=== PATIENT | male | born 1990 | race Caucasian/White ===

== ENCOUNTER 2019-09-24 13:24 | Observation (INO) ==
[2019-09-24 14:34] LABS: Basophils # (auto) 0.01 K/uL (0-0.2); Basophils % (auto) 0.2 %; Eosinophils # (auto) 0.11 K/uL (0-0.5); Eosinophils % (auto) 1.8 %; Hematocrit (blood only) 41.4 % (42-52); Hemoglobin 15.4 g/dL (14.0-18.0); Immature Granulocytes # (auto) 0.01 K/uL (0.00-0.02); Immature Granulocytes % (auto) 0.2 %; Lymphocytes # (auto) 1.33 K/uL (1.2-3.4); Lymphocytes % (auto) 22.2 %; Mean Corpuscular Hemoglobin 31.2 pg (25-34); Mean Corpuscular Hgb Conc 37.2 g/dL (32-36); Mean Platelet Volume 9.7 fL (7.4-10.4); Monocytes # (auto) 0.27 K/uL (0.11-0.59); Monocytes % (auto) 4.5 %; Neutrophils # (auto) 4.26 K/uL (1.4-6.5); Neutrophils % (auto) 71.1 %; Platelet Count 251 K/uL (130-400); RDW Coefficient of Variation 12.1 % (11.5-14.5); RDW Standard Deviation 36.8 fL (36.4-46.3); Red Blood Count 4.93 M/uL (4.7-6.1); White Blood Count 5.99 K/uL (4.8-10.8)
[2019-09-24 14:57] LABS: Albumin Level 4.3 gm/dl (3.4-5.0); BUN Creatinine Ratio 13.1 (10-20); Calcium 9.3 mg/dl (8.5-10.1); Creatinine Clr Calc Pharmacy 131.2 ml/min; Est GFR (African American) 128.3; Est GFR (Non-African American) 110.7; Potassium 3.6 mmol/L (3.5-5.1)
[2019-09-24 15:00] LABS: Albumin Globulin Ratio 1.2 (0.9-2); Bilirubin,Total 0.6 mg/dl (0.2-1); Globulin 3.7 gm/dl (2.5-4.0)
[2019-09-24] MEDS ORDERED: LACTATED RINGER'S 1,000 ML IV ONE (16:18)
[2019-09-24] MEDS ORDERED: LACTATED RINGER'S 1,000 ML IV SCH (16:30)
[2019-09-24] MEDS ORDERED: IOVERSOL 100ml IV PRN (16:31)
--- NOTE | 2019-09-24 16:43 | CT Scan Report ---
ABDOMEN AND PELVIS CT WITH IV AND ORAL CONTRAST CT DOSE: 501.73 mGy.cm HISTORY: Acute upper abdominal pain with elevated lipase upper abdominal pain, elevated lipase TECHNIQUE: Multiaxial CT images of the abdomen and pelvis were performed following the IV administrat ion of 94 cc of Optiray 320 and oral contrast. A dose lowering technique was utilized adhering to e principles of ALARA. COMPARISON STUDY: None. FINDINGS: Lung bases are clear. No pneumatosis or pneumoperitoneum. Imaged inferior cardiac chambers are unrema rkable. Spleen is mildly enlarged, 13.5 cm. The pancreas is unremarkable. There is no appreciable int erstitial or peripancreatic edema or peripancreatic fluid collections. Homogeneous enhancement of the pancreas without Guilherme or pancreatic ductal dilation. Unremarkable adrenal glands. Contracted gallbl adder. Unremarkable liver with patency of the hepatic and portal veins. Unremarkable appearance of the kidneys. Mild urinary bladder distention. The prostate is upper limits of normal in size with central coarse calcifications. Aorta and IVC are unremarkable. There is no ad enopathy. No bowel obstruction or bowel wall thickening. No ascites or mesenteric inflammation. Mild fecal rete ntion. Minimal colonic diverticulosis without acute diverticulitis. The terminal ileum and visualized appendix appear normal. Soft tissues are within normal limits. Bones appear intact. Probable bone is land of the right ischial tuberosity. IMPRESSION: 1. No acute intra-abdominal or intrapelvic abnormality. 2. No bowel obstruction or bowel wall thickening. Normal appendix. 3. No CT evidence of acute pancreatitis. ACT 112: Negative or not required by law. The above report was generated using voice recognition software. It may contain grammatical, syntax o r spelling errors. Electronically signed by: Norberto Joseph M.D. 09/24/2019 4:42 PM
--- NOTE | 2019-09-24 17:48 | History & Physical Report ---
Date of Service September 24, 2019 Assessment & Plan (1) Epigastric abdominal pain: -Admit to med surg for observation -This is likely gastritis vs gastric ulcer. Patient admits to consuming diet soda daily as well as red bull occasionally. Has recently started using famotidine with improvement in sx. Continue famotidine for now. Add carafate. Pt with high stress level in college could promote gastric ulceration. Low etoh consumption. -GI consulted, question if needs for possible endoscopy to rule out gastric ulcer. -Checking US of gallbladder to rule out cholecystitis -Lipase is elevated around 1000, patient denies any recent use of alcohol consumption, reports only uses alcohol 4 times a year. Check with a.m. labs -N.p.o. -Continue LR at 125 x 12 hours -Check helibacter pylori, guiac all stools -Tylenol for pain, patient reports pain is very mild at this point in time, Zofran PRN nausea (2) DVT prophylaxis: -Teds, ambulatory CODE STATUS full code Disposition: Patient from home, likely discharge within 24 hours History of Present Illness Primary Care Provider: NO PCP This is a [employer] student, 29 yo male with limited PMHx who presents with epigastric abdominal pain. Patient reports abdominal pain has been ongoing for approximately 1 month at this time, is worse postprandially, worse with carbonated drinks. Patient has been using OTC Pepcid daily x1 week which improved his symptoms, but did not eliminate them. He had also previously tried omeprazole for a few days. He denies any recent alcohol consumption, and states that he drinks ~4 times per year. He admits to drinking diet Pepsi every day, and energy drinks routinely. Prior to 1 month ago he was drinking 1-2 red bull per day. He denies any nausea, vomiting, changes in bowels including hematochezia, bright red blood per rectum, diarrhea or constipation. He reports his diet is fairly well-rounded including mostly proteins, fruits, vegetables and avoids all high-fat foods. He reports his father may have irritable bowel syndrome, however no formal diagnosis has been given. Pt reports that he stopped exercising about 1 year ago and has gained approximat stan 15 pounds due to being stressed out with college studies. Heused to smoke cigarettes, then switched to vaping, however vapes occasionally at this point, 1 time per week at max. Allergies Allergy/AdvReac Type Severity Reaction Status Date / Time No Known Allergies Allergy Unverified 09/24/19 14:17 Home Medications Home Medications Medication Instructions Recorded Confirmed Type famotidine [Pepcid] 20 mg PO BID 09/24/19 09/24/19 History Past Med/Surg History Medical History (Updated 09/24/19 @ 17:48 by Laura Figueroa PA-C) Psoriasis Family History (Updated 09/24/19 @ 17:23 by Bud Lima) Other No significant family history Social History (Updated 09/24/19 @ 17:22 by Bud Lima) Preferred Language: Marshallese Communication Ability: Effective Airline Dispatcher Required: No Beliefs That Will Affect Care: None Current Living Situation: Family Current Living Situation Comment: brother in a [employer] apartment current occupational status: student Other Information That Helps Us Care for You: No Feels Safe at Home: Yes Safety Concerns: Feels Safe At This Time Smoking Status: Former smoker Tobacco Type: cigarettes and e-cigarettes ; Cigarettes Per Day: 10 ; Smoking End Date: 2018 ; Hx Alcohol Use: Yes Alcohol type: beer Alcohol Intake Frequency: Rarely Hx Substance Use: No Review of Systems Review of Systems: Constitutional: No fever, sweats or chills Eyes: No diplopia, no worsening or blurred vision ENT: normal hearing, no trouble swallowing Respiratory: No cough, sputum, dyspnea at rest or on exertion Cardiovascular: No chest pain, tightness or palpitations Abdomen: As per HPI. Musculoskeletal: No joint pain, calf pain, swelling Neurologic: No weakness, numbness/tingling, or balance problems Psychiatric: No anxiety or depression Skin: No rash or itch Physical Exam Physical Exam: General: awake, alert, no apparent distress Head: Normocephalic, atraumatic ENT: PERRL, EOMI, no pharyngeal exudate, mucous membranes moist Chest: Clear to auscultation, on room air, no adventitious breath sounds Cardiac: Regular rate and rhythm, no murmur, no JVD, normal peripheral pulses, good capillary refill Abdominal: NABS x 4 quadrants, soft, nondistended, nontender to palpation, no rebound, guarding or tenderness Extremities: Normal inspection, no peripheral edema or erythema, calfs nontender to palpation Psych: Normal mood and affect Neuro: AAO x 3, strength intact bilaterally and rated 5/5, no motor deficits, speech is clear, no peripheral sensory deficits Results & Data Vital Signs (Past 12 Hours) Vital Signs Temp Pulse Pulse Resp BP BP Pulse Ox 09/24/19 17:00 92 H 18 138/82 98 09/24/19 13:29 37.1 C 107 H 20 159/93 H 98 Diagnostic Findings ABDOMEN AND PELVIS CT WITH IV AND ORAL CONTRAST CT DOSE: 501.73 mGy.cm HISTORY: Acute upper abdominal pain with elevated lipase upper abdominal pain, elevated lipase TECHNIQUE: Multiaxial CT images of the abdomen and pelvis were performed following the IV administration of 94 cc of Optiray 320 and oral contrast. A dose lowering technique was utilized adhering to the principles of ALARA. COMPARISON STUDY: None. FINDINGS: Lung bases are clear. No pneumatosis or pneumoperitoneum. Imaged inferior cardiac chambers are unremarkable. Spleen is mildly enlarged, 13.5 cm. The pancreas is unremarkable. There is no appreciable interstitial or peripancreatic edema or peripancreatic fluid collections. Homogeneous enhancement of the pancreas without Guilherme or pancreatic ductal dilation. Unremarkable adrenal glands. Contracted gallbladder. Unremarkable liver with patency of the hepatic and portal veins. Unremarkable appearance of the kidneys. Mild urinary bladder distention. The prostate is upper limits of normal in size with central coarse calcifications. Aorta and IVC are unremarkable. There is no adenopathy. No bowel obstruction or bowel wall thickening. No ascites or mesenteric inflammation. Mild fecal retention. Minimal colonic diverticulosis without acute diverticulitis. The terminal ileum and visualized appendix appear normal. Soft tissues are within normal limits. Bones appear intact. Probable bone island of the right ischial tuberosity. IMPRESSION: 1. No acute intra-abdominal or intrapelvic abnormality. 2. No bowel obstruction or bowel wall thickening. Normal appendix. 3. No CT evidence of acute pancreatitis. ACT 112: Negative or not required by law. The above report was generated using voice recognition software. It may contain grammatical, syntax or spelling errors. Electronically signed by: Norberto Joseph M.D. 09/24/2019 4:42 PM Code Status & VTE Plan Code Status FULL CODE Supervising Physician Co-Signing Physician Notes I have seen and examined patient with Janeth Figueroa PA-C and agree with the assessment and plan. PG Care Time/CCT Total # of Minutes Spent Total Time Spent with Patient: Total time spent is greater than 50% in coordination of care (as documented) at patient's floor/unit and/or counseling patient: Coding Level of Care Code 45008 OBS Care - Level 3 Diagnoses Epigastric abdominal pain R10.13 DVT prophylaxis Z29.9
[2019-09-24] MEDS: LACTATED RINGER'S 1,000 ML IV SCH (19:15)
[2019-09-24] MEDS ORDERED: ONDANSETRON INJ 2 MG/ML 2 ML VIAL IV PRN (19:18)
[2019-09-24] MEDS ORDERED: ACETAMINOPHEN 325 MG TAB PO PRN (19:18)
--- NOTE | 2019-09-24 20:30 | Emergency Department Note ---
Entered by Bud Lima acting as a scribe for ED Provider Note CHIEF COMPLAINT: abdominal pain HISTORY OF PRESENT ILLNESS: The patient is a 29 year old M who presents to the Emergency Room with complaints of waxing and waning abdominal pain that started 1 week ago. The patient states that for the past week, he has been experiencing abdominal pain and bloating. He notes that at worst, his abdominal pain is 6 out of 10. He adds that right now, his pain is at 3 out of 10. He states that he has been taking Pepcid and omeprazole for his abdominal pain. He notes that the Pepcid relieves his pain, but causes him to experience worsened abdominal bloating. He adds that eating worsens his pain. He notes that his pain radiates to his back. He adds that he has noticed that his stools are light in color. He states that he is also currently experiencing shortness of breath, tiredness, congestion, upper back pain, and a rash on his palms. He notes that his shortness of breath is present when he tries to take a deep breath. He adds that he has a history of psoriasis. He states that he went to see his PCP, today, due to his symptoms. He adds that his PCP referred him to the ED due to an elevated lipase level of 857. He denies being around anybody sick and being on any recent travel. He states that he was born in [place]. He adds that he has been living in the since 2006. He notes that he is currently studying math, at [employer], as an undergraduate student. He states that he rarely drinks alcohol. He denies drinking any alcohol in the past couple of weeks. Pt denies LOC, headache, fevers, chills, diaphoresis, visual changes, neck pain, chest pain, nausea, vomiting, melena, hematochezia, urinary symptoms, numbness, weakness, lymphadenopathy, or other complaints. REVIEW OF SYSTEMS: See HPI for pertinent positives and negatives. A total of ten systems were reviewed and were otherwise negative. PMHx/PSHx: psoriasis SOCIAL HISTORY: Patient lives at home. Patient is a current college student. Patient rarely drinks alcohol. PHYSICAL EXAM: GENERAL: Awake, alert, well-appearing, in no distress HENT: Normocephalic, atraumatic. Oropharynx unremarkable. EYES: PERRL. Normal conjunctiva. Sclera non-icteric. NECK: Inspection normal. Non-tender. Supple. No nuchal rigidity. FROM. No masses. RESPIRATORY: Clear to auscultation. No wheezes. No rales. Normal respiratory effort. CARDIAC: Normal rate. Normal rhythm. No murmurs. No rubs. Extremities warm and well perfused. Pulses equal. No JVD. GI: Soft, non-distended. Minimal epigastric discomfort. No rebound or guarding. No masses. RECTAL: Deferred. MUSCULOSKELETAL: Atraumatic. Chest examination reveals no tenderness. The back is symmetrical on inspection without obvious abnormality. There is no CVA tenderness to palpation. No joint edema. LOWER EXTREMITIES: Calves are equal size bilaterally and non-tender. No edema. No discoloration. NEURO: Normal sensorium. No sensory or motor deficits noted. SKIN: No rash or jaundice noted. EMERGENCY DEPARTMENT COURSE: 1419: The patient was evaluated in room B2, and a complete history and physical examination were performed. 1713: I reviewed the patient's case with Dr. Adkins, [facility] [place] Hospitalist. She will evaluate the patient for further management. 1722: I updated the patient on his test results and plan for admission. MEDICAL DECISION MAKING: B2 Prior records/ancillary studies reviewed. Triage Nursing notes reviewed and agree them. The patient's history was concerning for abdominal pain. Differential diagnosis: Etiologies such as , pancreatitis, appendicitis, diverticulitis, PUD, biliary pathology, UTIobstruction, mesenteric ischemia, aortic pathology, infections, inflammatory bowel disease, renal colic, as well as others were entertained. Physical examination findings: As above. ER treatment provided: Patient declined analgesia Lactated Ringer's bolus and drip On reassessment the patient felt better. Diagnostics interpreted by me: The labs revealed an unremarkable CBC and chemistry panel. The patient's lipase was significantly elevated at 1112. Imaging studies: CT imaging of the abdomen pelvis was performed and did not reveal any acute findings. No CT evidence of pancreatitis. The patient has pancreatitis of unknown etiology. Ultrasound imaging was ordered however the patient's gallbladder was contracted and radiology recommended waiting 6 hours before scanning. Consultation: A consultation was placed with the [facility] hospitalist. The case was discussed and diagnostics were reviewed. The patient was evaluated in the ER for further treatment. IMPRESSION: pancreatitis, epigastric abdominal pain PLAN: Admitted as inpatient. The scribe's documentation has been prepared under my direction and personally reviewed by me in its entirety. I confirm that the note above accurately reflects all work, treatment, procedures, and medical decision making performed by me. Impression & Plan Pancreatitis, Epigastric abdominal pain Past Med/Surg History Medical History (Updated 09/24/19 @ 17:48 by Laura Figueroa PA-C) Psoriasis Family History (Updated 09/24/19 @ 17:23 by Bud Lima) Other No significant family history Social History (Updated 09/24/19 @ 17:22 by Bud Lima) Preferred Language: Senegalese Communication Ability: Effective Polishing Machine Tender Required: No Beliefs That Will Affect Care: None Current Living Situation: Family Current Living Situation Comment: brother in a [employer] apartment current occupational status: student Other Information That Helps Us Care for You: No Feels Safe at Home: Yes Safety Concerns: Feels Safe At This Time Smoking Status: Former smoker Tobacco Type: cigarettes and e-cigarettes ; Cigarettes Per Day: 10 ; Smoking End Date: 2018 ; Hx Alcohol Use: Yes Alcohol type: beer Alcohol Intake Frequency: Rarely Hx Substance Use: No Results & Data Vital Signs Vital Signs - 24 hr 09/24/19 13:29 09/24/19 17:00 Temperature 37.1 C Temperature Source Oral Pulse Rate 107 H Pulse Rate [Left] 92 H Pulse Rhythm [Left] Regular Pulse Strength [Left] Normal Respiratory Rate 20 18 Respiratory Effort / Characteristics Non-Labored Spontaneous Non-Labored Spontaneous Respiratory Depth Normal Normal Blood Pressure 159/93 H Blood Pressure [Left Arm] 138/82 Blood Pressure Mean 115 Blood Pressure Mean [Left Arm] 100 Blood Pressure Position Sitting Blood Pressure Position [Left Arm] Lying Pulse Oximetry 98 98 Oxygen Delivery Method Room Air Room Air Sepsis Action Taken by Nursing No Action Required Home Medications Current Medication List: was personally reviewed by me Laboratory Data Attestation: I reviewed the patient's lab results. Result diagrams: 09/24/19 14:21 09/24/19 14:21 Lab Results 09/24/19 09/24/19 Range/Units 14:21 14:21 WBC 5.99 (4.8-10.8) K/uL RBC 4.93 (4.7-6.1) M/uL Hgb 15.4 (14.0-18.0) g/dL Hct 41.4 L (42-52) % MCV 84.0 (80-100) fL MCH 31.2 (25-34) pg MCHC 37.2 H (32-36) g/dL RDW Std Deviation 36.8 (36.4-46.3) fL RDW Coeff of Danni 12.1 (11.5-14.5) % Plt Count 251 (130-400) K/uL MPV 9.7 (7.4-10.4) fL Immature Gran % (Auto) 0.2 % Neut % (Auto) 71.1 % Lymph % (Auto) 22.2 % Stewart % (Auto) 4.5 % Eos % (Auto) 1.8 % Baso % (Auto) 0.2 % Immature Gran # (Auto) 0.01 (0.00-0.02) K/uL Neut # (Auto) 4.26 (1.4-6.5) K/uL Lymph # (Auto) 1.33 (1.2-3.4) K/uL Stewart # (Auto) 0.27 (0.11-0.59) K/uL Eos # (Auto) 0.11 (0-0.5) K/uL Baso # (Auto) 0.01 (0-0.2) K/uL Sodium 138 (136-145) mmol/L Potassium 3.6 (3.5-5.1) mmol/L Chloride 105 (98-107) mmol/L Carbon Dioxide 29 (21-32) mmol/L Anion Gap 4.0 (3-11) BUN 12 (7-18) mg/dl Creatinine 0.94 (0.6-1.4) mg/dl Est Cr Clr Drug Dosing 131.2 ml/min Est GFR ( Amer) 128.3 Est GFR (Non-Af Amer) 110.7 BUN/Creatinine Ratio 13.1 (10-20) Glucose 117 H (70-99) mg/dl Calcium 9.3 (8.5-10.1) mg/dl Total Bilirubin 0.6 (0.2-1) mg/dl AST 18 (15-37) U/L ALT 31 (12-78) U/L Alkaline Phosphatase 61 (45-117) U/L Total Protein 8.0 (6.4-8.2) gm/dl Albumin 4.3 (3.4-5.0) gm/dl Globulin 3.7 (2.5-4.0) gm/dl Albumin/Globulin Ratio 1.2 (0.9-2) Lipase 1112 H (73-393) U/L Administered Medications Ioversol (Optiray 320 100ml) 94 ml IV ONCE PRN PRN Reason: Interaction Checking Stop: 09/28/19 16:30 Last Admin: 09/24/19 16:32 Dose: 94 ml Documented by: [id number] Discontinued Medications Lactated Ringer's (Lr) 1,000 mls @ 999 mls/hr IV .Q1H1M ONE Stop: 09/24/19 17:18 Last Infusion: 09/24/19 18:55 Dose: 0 mls/hr Documented by: [id number] Admin: 09/24/19 17:39 Dose: 999 mls/hr Documented by: [id number] Lactated Ringer's (Lr) 1,000 mls @ 200 mls/hr IV .Q5H BLUE Stop: 09/24/19 20:00 Last Admin: 09/24/19 18:33 Dose: 200 mls/hr Documented by: [id number] Imaging Data Radiologist's Impression: Radiology results as stated below per my review and the radiologist's interpretation: ABDOMEN AND PELVIS CT WITH IV AND ORAL CONTRAST CT DOSE: 501.73 mGy.cm HISTORY: Acute upper abdominal pain with elevated lipase upper abdominal pain, elevated lipase TECHNIQUE: Multiaxial CT images of the abdomen and pelvis were performed following the IV administration of 94 cc of Optiray 320 and oral contrast. A dose lowering technique was utilized adhering to the principles of ALARA. COMPARISON STUDY: None. FINDINGS: Lung bases are clear. No pneumatosis or pneumoperitoneum. Imaged inferior cardiac chambers are unremarkable. Spleen is mildly enlarged, 13.5 cm. The pancreas is unremarkable. There is no appreciable interstitial or peripancreatic edema or peripancreatic fluid collections. Homogeneous enhancement of the pancreas without Guilherme or pancreatic ductal dilation. Unremarkable adrenal glan ds. Contracted gallbladder. Unremarkable liver with patency of the hepatic and portal veins. Unremarkable appearance of the kidneys. Mild urinary bladder distention. The prostate is upper limits of normal in size with central coarse calcifications. Aorta and IVC are unremarkable. There is no adenopathy. No bowel obstruction or bowel wall thickening. No ascites or mesenteric inflammation. Mild fecal retention. Minimal colonic diverticulosis without acute diverticulitis. The terminal ileum and visualized appendix appear normal. Soft tissues are within normal limits. Bones appear intact. Probable bone island of the right ischial tuberosity. IMPRESSION: 1. No acute intra-abdominal or intrapelvic abnormality. 2. No bowel obstruction or bowel wall thickening. Normal appendix. 3. No CT evidence of acute pancreatitis. ACT 112: Negative or not required by law. The above report was generated using voice recognition software. It may contain grammatical, syntax or spelling errors. Electronically signed by: Norberto Joseph M.D. 09/24/2019 4:42 PM Blood Pressure Blood Pressure Findings: Elevated blood pressure Blood Pressure Disposition: further management by hospitalist Discharge Plan Visit Data *Final* Discharge Date/Time: 09/24/19 19:07 Chief Complaint: Abdominal Pain Stated Complaint: ABD PAIN, LAB RESULTS REF BY DR TORRES Provider: David La Discharge Problem: Pancreatitis, Epigastric abdominal pain Patient Disposition: Admitted As Inpatient Discharge Instructions Interventions: ED Discharge Assessment Last Done: 09/24/19 19:07 Discharge Problem: Pancreatitis Qualifiers: Chronicity: acute Pancreatitis type: unspecified pancreatitis type Acute pancreatitis complication: unspecified Qualified Code(s): K85.90 - Acute pancreatitis without necrosis or infection, unspecified The scribe's documentation has been prepared under my direction and personally reviewed by me in its entirety. I confirm that the note above accurately reflects all work, treatment, procedures, and medical decision making performed by me.
--- NOTE | 2019-09-24 20:47 | Ultrasound Report ---
US gallbladder CLINICAL HISTORY: 29 years-old Male presenting with pancreatitis. TECHNIQUE: Real-time grayscale and limited color Doppler ultrasound imaging of the abdomen limited to the right upper quadrant was performed. COMPARISON: CT performed earlier today. FINDINGS: Pancreas: Visualized portions of the pancreatic head and body normal. Liver: Normal echogenicity and echotexture. The liver measures 15.2 cm in maximal sagittal dimension. No sonographic evidence of hepatic mass. Main portal vein patent with normal directional flow. Biliary: No intrahepatic biliary ductal dilatation. Common bile duct measures up to 2 mm in diameter. Gallbladder: No evidence of gallstones, gallbladder wall thickening, gallbladder distention, or peric holecystic fluid or inflammatory change. Sonographic Romero's sign negative. Right kidney: Normal in appearance without evidence of hydronephrosis. Ascites: None. Other: None. IMPRESSION: No cholelithiasis or biliary ductal dilatation. ACT 112: Negative or not required by law. Electronically signed by: Jose Perkins M.D. 09/24/2019 8:46 PM
[2019-09-24] MEDS: FAMOTIDINE 20 MG TAB PO SCH (21:55)
[2019-09-24] MEDS: SUCRALFATE 1 GM/10 ML UDC PO SCH (21:55)
[2019-09-25] MEDS: LACTATED RINGER'S 1,000 ML IV SCH ×2 (03:08→15:00)
[2019-09-25 03:35] LABS: Appearance Urine Clear (Clear); Bilirubin Urine Negative (Negative); Blood Urine Negative (Negative); Color Urine Yellow; Glucose Urine UA Negative (Negative); Ketones Urine Negative (Negative); Leukocyte Esterase Urine Negative (Negative); Nitrite Urine Negative (Negative); Protein Urine Negative (Negative); Specific Gravity Urine 1.042 (1.000-1.030); Urobilinogen Urine Negative (Negative); pH Urine 6.5 (4.5-7.5)
[2019-09-25 05:59] LABS: Albumin Globulin Ratio 1.3 (0.9-2); Albumin Level 3.5 gm/dl (3.4-5.0); Bilirubin,Total 0.6 mg/dl (0.2-1); Calcium 8.6 mg/dl (8.5-10.1); Creatinine Clr Calc Pharmacy 137.9 ml/min; Est GFR (African American) 135.8; Est GFR (Non-African American) 117.2; Globulin 2.8 gm/dl (2.5-4.0); Potassium 4.2 mmol/L (3.5-5.1); Total Protein 6.3 gm/dl (6.4-8.2)
[2019-09-25] MEDS: SUCRALFATE 1 GM/10 ML UDC PO SCH ×3 (08:33→16:43)
[2019-09-25] MEDS: FAMOTIDINE 20 MG TAB PO SCH (08:33)
--- NOTE | 2019-09-25 10:12 | Gastrointestinal Consultation ---
Date of Consultation September 25, 2019 Assessment & Plan (1) Epigastric abdominal pain: (2) Elevated lipase: Pt is a 29 y/o male seen for elevated lipase noted on admission yesterday over 1000, though normalized this AM (75). Abdominal imaging w CT and u/s w/o signs of pancreatitis or liver abnormalities, nor gallstones, CBD dilation. LFTs normal. He does have epigastric discomfort & acid reflux/heartburn symptoms, worse w ingestion of Red Bull & sodas. Unsure cause of lipase elevation but less likely acute pancreatitis. Suspect likely has gastritis, or PUD. - Check lipid profile to r/o hypertriglyceridemia - CL diet, advance to low fat as tolerated - Advised to avoid sodas - No contraindication for DC home today. Recommend he at least should be discharged with high dose PPI PO BID dosing and we will schedule f/u outpt EGD/EUS evaluation Supervising Physician Co-Signing Physician Notes I performed a history and physical examination of the patient today, including specifically on physical exam - soft abdomen. I have discussed the patient's management with the advanced practitioner. Please refer to the nurse practitioner's note for the documented findings and plan of care. 29 yrs old admitted with abdominal pain, has minimal elevation in Lipase but normal CT scan, doubt true pancreatitis, pain resolved already. No gallstones or alcohol use. He drinks Red bull daily. Recommend: MRCP today to check ductal anatomy. EUS as OP. Stop Red bull. Recall GI if needed. History of Present Illness Reason for Consultation: Epigastric pain Requesting Physician: Dr. Oneal Dennis Attending Physician: Dr. Jonathon Patel History of Present Illness Pt is a 29 y/o [employer] student who was referred to ED yesterday by Dr. Us from [facility] for elevated lipase level. Pt had been c/o epigastric discomfort for over a month. Feels like he's having heartburn, acid reflux and been taking TUMs on prn basis. He drinks Red Bull and sodas regularly. These consumption makes epigastric discomfort worse. He saw Dr. sU yesterday and labs obtained showed lipase over 800 ([employer] labs) thus referred to ED for further eval. Repeat labs in ED showed normal CBC, renal/liver functions but lipase was over 1000. Interestingly lipase normal at [address] ab[address]/pelvis and gallbladder u/s w/o signs of acute pancreatitis, gallstones or sludge nor CBD dilation. He was kept NPO and given LR IVF. This AM felt good - no increased epigastric discomfort, stating never really had any pain. He denies regular uses of NSAIDs. Quit tobacco use, and started Jolynn vape up. Uses marijuana products last used 2 weeks ago. ETOH about 3x a year. time per week at max. Allergies Allergy/AdvReac Type Severity Reaction Status Date / Time No Known Allergies Allergy Unverified 09/24/19 14:17 Home Medications Home Medications Medication Instructions Recorded Confirmed Type famotidine [Pepcid] 20 mg PO BID 09/24/19 09/24/19 History pantoprazole [Protonix] 40 mg PO BID 30 Days #60 tab 09/25/19 Rx sucralfate [Carafate] 1 gm PO ACHS 7 Days #28 tab 09/25/19 Rx Patient History Medical History (Updated 09/25/19 @ 10:13 by Lily Roblero) Psoriasis Family History (Updated 09/24/19 @ 17:23 by Bud Lima) Other No significant family history Social History (Updated 09/24/19 @ 17:22 by Bud Lima) Preferred Language: Japanese Communication Ability: Effective Spreader Operator Automatic Required: No Beliefs That Will Affect Care: None Current Living Situation: Family Current Living Situation Comment: brother in a [employer] apartment current occupational status: student Other Information That Helps Us Care for You: No Feels Safe at Home: Yes Safety Concerns: Feels Safe At This Time Smoking Status: Former smoker Tobacco Type: cigarettes and e-cigarettes ; Cigarettes Per Day: 10 ; Smoking End Date: 2018 ; Hx Alcohol Use: Yes Alcohol type: beer Alcohol Intake Frequency: Rarely Hx Substance Use: No Review of Systems Review of Systems: All systems reviewed & are unremarkable except as noted in HPI & below Physical Exam Constitutional: WD/WN, vitals as above well groomed, cooperative and comfortable Eyes: PERRL, conjunctivae normal, anicteric sclerae ENMT: external ear and nose normal, oropharynx normal Respiratory: normal respiratory effort, lungs clear to auscultation Cardiovascular: RRR, no murmur, no edema Gastrointestinal (Abdomen): Inspection/Auscultation: normal bowel sounds Percussion/Palpation: + abdomen tender (mild epigastric tenderness) and abdomen soft; no guarding Skin: no rashes, warm and dry no jaundice Neurologic: Motor/Sensory: no asterixis Psychiatric: A+Ox3, euthymic affect Lymphatic: no lymphedema Results & Data ([facility]) Vital Signs (Past 12 Hours) Vital Signs Temp Pulse Resp BP Pulse Ox 09/25/19 07:17 36.5 C 19 106/66 97 09/24/19 23:15 36.3 C L 59 L 16 107/63 97
[2019-09-25 11:09] LABS: Chol HDL Ratio 3; Cholesterol 149 mg/dl (0-200); HDL Cholesterol 47 mg/dl; LDL Cholesterol Calculated 92 mg/dl; Triglycerides 52 mg/dl (0-150); VLDL Cholesterol 10 mg/dl
--- NOTE | 2019-09-25 15:07 | Discharge Summary ---
Date of Service September 25, 2019 Admission HPI Per Admitting Provider This is a [employer] student, 29 yo male with limited PMHx who presents with epigastric abdominal pain. Patient reports abdominal pain has been ongoing for approximately 1 month at this time, is worse postprandially, worse with carbonated drinks. Patient has been using OTC Pepcid daily x1 week which improved his symptoms, but did not eliminate them. He had also previously tried omeprazole for a few days. He denies any recent alcohol consumption, and states that he drinks ~4 times per year. He admits to drinking diet Pepsi every day, and energy drinks routinely. Prior to 1 month ago he was drinking 1-2 red bull per day. He denies any nausea, vomiting, changes in bowels including hematochezia, bright red blood per rectum, diarrhea or constipation. He reports his diet is fairly well-rounded including mostly proteins, fruits, vegetables and avoids all high-fat foods. He reports his father may have irritable bowel syndrome, however no formal diagnosis has been given. Pt reports that he stopped exercising about 1 year ago and has gained approximately 15 pounds due to being stressed out with college studies. Heused to smoke cigarettes, then switched to vaping, however vapes occasionally at this point, 1 time per week at max. Admission Exam Per Admitting Provider General: awake, alert, no apparent distress Head: Normocephalic, atraumatic ENT: PERRL, EOMI, no pharyngeal exudate, mucous membranes moist Chest: Clear to auscultation, on room air, no adventitious breath sounds Cardiac: Regular rate and rhythm, no murmur, no JVD, normal peripheral pulses, good capillary refill Abdominal: NABS x 4 quadrants, soft, nondistended, nontender to palpation, no rebound, guarding or tenderness Extremities: Normal inspection, no peripheral edema or erythema, calfs nontender to palpation Psych: Normal mood and affect Neuro: AAO x 3, strength intact bilaterally and rated 5/5, no motor deficits, speech is clear, no peripheral sensory deficits Principal Diagnosis Epigastric Pain, Pancreatitis Discharge Exam General: Resting comfortably HEENT: NC/AT; PERRLA with EOMI; [place] conjunctiva, MMM. No erythema of posterior pharynx Neck: Supple and nontender Cardiac: RRR Lungs: CTA bilaterally Abdomen: Bowel normoactive X 4; Nontender to palpation Extremities: Warm. No edema present Neuro: No focal weakness Skin: No rash Discharge Data Allergies Allergy/AdvReac Type Severity Reaction Status Date / Time No Known Allergies Allergy Unverified 09/24/19 14:17 Consultations 09/24/19 17:14 ED Decision to Admit Stat 09/24/19 19:18 Consult Gastroenterology Routine Ordered Studies 09/24/19 14:21 CT abd pelvis oral and IV con Stat 09/24/19 17:14 US gallbladder Stat 09/25/19 14:11 MR MRCP Routine Hospital Course (1) Epigastric abdominal pain: Likely related to pancreatitis vs. gastritis vs. PUD. Drinks soda daily along with redbull. Recently started using Famotidine with some improvement. Continued as inpatient. Added Carafate x 7 days and PPI [address] A/P was negative; RUQ US neg for cholelithiasis or ductal dilatation. GI consulted, MRCP was negative prior to discharge. Will need outpatient EUS/EGD in 4-6 weeks. PPI, H2RA and Carafate at home. H. pylori is pending. F/u with [facility] and GI as outpatient for further evaluation. (2) Pancreatitis: Lipase level >1,000 on admission, improved to 75. MRCP negative. Outpatient EUS will be scheduled. Lipid panel was WNL. Low fat diet at home; avoid ETOH consumption. (3) DVT prophylaxis: Teds, ambulatory. Discharged to home on 09/25/19. Total Time Total Time Spent Total Time Spent (In Minutes): >30 minutes Total Time Includes: Examination of the Patient, Discharge Planning, Medication Reconciliation, Communication With Other Providers and Other Discharge Plan Discharge Items Patient Disposition: Home - Self-Care Reason For Visit: EPIGASTRIC PAIN Discharge Diagnosis: Epigastric Pain, Gastritis Condition on Discharge: Good Goals: You have been hospitalized for an acute medical problem. During your stay at [facility], we have made an effort to correct the problem that brought you to the hospital while keeping you as comfortable as possible. Medications were used to bring your condition under control and your discharge instructions will include directions for any medications you should take after leaving the hospital. Please make sure you see your Primary Care Provider as part of your follow up plan. Activity: As commented below Exercise/Sports: Gradually increase as tolerated Non-emergency contact: Primary Care Provider and Social Media Senior Associate Call non-emergency contact if: you have any medication questions, your symptoms worsen and you have a fever Follow-up/Referrals: Sammy Lynn MD [Physician] - 10/07/19 9:50 am (Please follow up with gastro to discuss EGD/EUS in 4-6 weeks. ) [facility] [Non-Staff] - (Please follow up with [facility] in 7-10 days. ) PCP,NO [Primary Care Provider] - Diet: Low Fat Addtl Attending Provider Instructions: 1. Epigastric abdominal pain * Please take Protonix 40 mg twice daily. * Please take Carafate 1 gm four times daily x 7 days. * Continue low fat diet as tolerated at home. * Follow up with [facility] in 1-2 weeks to discuss this hospitalization. * You will also need to follow up with GI to schedule an EGD/EUS procedure. * Avoid soda & alcohol consumption at home. Pending Studies at Discharge: Yes Studies:: H. pylori Stand-Alone Forms: My [facility] Medications and DC Order Prescriptions: New pantoprazole [Protonix] 40 mg tablet,delayed release (DR/EC) 40 mg PO BID 30 Days Qty: 60 RF: 0 sucralfate [Carafate] 1 gram tablet 1 gm PO ACHS 7 Days Qty: 28 RF: 0 Continued famotidine [Pepcid] 20 mg Tablet 20 mg PO BID RF: 0 Discharge Orders: Discharge Order (Routine); Ordered 09/25/19 Ordered By: Isis Ruelas Admission Data Admit Date/Time: 09/24/19 17:48 Attending Provider: Oneal Eng Admit Provider: Isabela Adkins Primary Care Provider: PCP,LAUREN Other Providers: Isabela Adkins ; Sammy Lynn Other Interventions: Discharge Summary Assessment (RN) Last Done: 09/25/19 18:04 DC Date/Time DO NOT enter until pt leaves facility: 09/25/19 18:35 Supervising Physician Co-Signing Physician Notes Attending Attestation and Discharge Note: Pt seen/examined, chart reviewed, care plan d/w PA Isis Ruelas. I agree w/ the peralta components of her documentation. 29yo male with no PMH who presented with epigastric pain. Lipase at time of admission was elevated at 1112. Level quickly normalized by the next hospital day. Seen by [facility] GI - MRCP recommended - this imaging study was normal (no pancreatic divisum, etc). [facility] GI recommended PPI at discharge, and outpatient EGD/EUS. Etiology of pancreatitis was uncertain. Viral? Other? Discharge exam: gen - NAD eyes - no icterus heart - RRR, s1 s2, no murmur lungs - CTA b/l abd - soft NT ND BS+ no HSM ext - no edema Oneal Eng MD Coding Level of Care Code D/C Day Management >30 mins Diagnoses Epigastric abdominal pain R10.13 Pancreatitis K85.90 Acute pancreatitis complication: unspecified Chronicity: acute Pancreatitis type: unspecified pancreatitis type DVT prophylaxis Z29.9
--- NOTE | 2019-09-25 17:37 | Magnetic Resonance Report ---
Study: MRCP HISTORY: Nausea. Acid reflux. COMPARISON: CT 09/24/2019 FINDINGS: The MRCP component of the study is unremarkable. Gallbladder appears to be normal. No signi ficant filling defects within the biliary ductal system. No evidence for choledocholithiasis. Liver spleen and pancreas are unremarkable. The remainder of the abdomen is unremarkable. IMPRESSION:: 1. Negative study. 2. No significant additional information compared to the CT study of 09/24/2019 Electronically signed by: Frank Leroy M.D. 09/25/2019 5:36 PM
== END 2019-09-25 18:35 | disposition home or self-care (01) ==
LOC: ED 13:24 → 3N 13:24 → SUATTDRO 17:48 → 3N 19:07
DX: K85.90 Acute pancreatitis without necrosis or infection, unspecified